=== PATIENT | male | born 1955 | race Caucasian/White ===

== ENCOUNTER 2016-11-24 19:20 | Emergency (ER) | payer BC ==
[2016-11-24 19:49] LABS: Troponin I 0.01 ng/mL (<0.04)
[2016-11-24 19:50] LABS: Hematocrit 42 % (42-52); Hemoglobin 14.5 g/dl (14.0-18.0); Mean Corpuscular HGB Conc 34 g/dl (31-36); Mean Corpuscular Hemoglobin 28 pg (27-31); Mean Corpuscular Volume 83 fL (80-94); Mean Platelet Volume 7 um3 (7.4-10.4); Red Blood Count 5.12 10^6/ul (4.0-5.4); Red Cell Distribution Width 14 % (10.5-15); White Blood Count 5.1 10^3/ul (3.5-10.8)
[2016-11-24 19:52] LABS: ALT 24 U/L (7-52); Albumin 4.3 g/dL (3.2-5.2); Alkaline Phosphatase 87 U/L (34-104); BUN/Creatinine Ratio 17.5 (8-20); Blood Urea Nitrogen 22 mg/dL (6-24); CO2 Carbon Dioxide 20 mmol/L (22-32); Chloride 104 mmol/L (101-111); Cholesterol 226 mg/dL; EGFR African American 75.1 (>60); EGFR Non-African American 58.4 (>60); Globulin 3.1 g/dL (2-4); Glucose 103 mg/dL (70-100); HDL Cholesterol 36.5 mg/dL; Sodium 134 mmol/L (133-145); Total Protein 7.4 g/dL (6.4-8.9); Triglycerides 496 mg/dL
--- NOTE | 2016-11-24 19:53 | RAD ---
INDICATION: Code santiago COMPARISON: None TECHNIQUE: Noncontrast axial source images were acquired from the skull base to the vertex. Examination is mildly limited due to motion artifact FINDINGS: Ventricles/sulci: The ventricles and cisterns are normal in size and configuration for age. Brain parenchyma: There is no definitive focal parenchymal finding, evidence of intracranial mass, or intracranial mass effect. Intracranial hemorrhage:None. Extra-axial spaces: There are no abnormal extra axial fluid collections or evidence of extra-axial mass. Calvarium: There is no calvarial fracture or other calvarial abnormality. Scalp: There is no evidence of scalp or extracalvarial soft tissue abnormality. Paranasal sinuses/mastoid: The paranasal sinuses and mastoid air cells are clear. Other: The left MCA is hyperdense consistent with thrombus. IMPRESSION: HYPERDENSE LEFT MCA CONSISTENT WITH THROMBUS/CLOT AND IMPENDING LEFT MCA DISTRIBUTION INFARCT. NO INTRACRANIAL HEMORRHAGE IS IDENTIFIED. Findings called to ED at 1940 hours
--- NOTE | 2016-11-24 20:07 | RAD ---
INDICATION: CVA COMPARISON: None TECHNIQUE: An AP portable view obtained at 1945 hours is submitted. FINDINGS: Bones/Soft Tissues: There are no acute bony findings. Cardiomediastinal: The cardiomediastinal silhouette is normal. Lungs: There are no infiltrates. Pleura: There are no pleural effusions. Other: None IMPRESSION: NO ACTIVE DISEASE.
[2016-11-24] MEDS ORDERED: ALTEPLASE IV ONE (20:08)
[2016-11-24] MEDS ORDERED: ALTEPLASE IVPB ONE (20:08)
[2016-11-24] MEDS ORDERED: LORazepam INJ* 2 MG/ML 1 ML VIAL ONE (20:21)
[2016-11-24] MEDS ORDERED: LORazepam INJ* 2 MG/ML 1 ML VIAL IV PUSH ONE ×3 (20:28→21:00)
--- NOTE | 2016-11-24 20:42 | CONSULT ---
Consult Consult: 11/24/16 neurology consult 61 year old RHM, no relevant med history (traumatic R toe amputation, knee surg) , no home meds/NKDA, presenting tonight with acute onset obtundation, aphasia, left gaze preference and right hemiparesis. Accompanied in ED by they were working in yard around 18-18:30, she sent him inside while she stayed outside. She thinks he was unaccompanied 30-40 min max; when she went in she found him in above state and activated EMS. She showed me a 18:42 text on his phone to which he replied in [employer] App. Found to be in afib. Allergies/Meds - none/per hpi PMH - as above FH - NC SH - no tobacco or etoh issues; lives with ROS - 10 point review limited by altered mental status/limited cooperation general Examination: no apparent distress, no edema, male of stated age; VS per EMR Neurologic Examination Mental Status: obtunded, moving all over bed L > R, aphasic Cranial Nerves: Funduscopy deferred, pupils reactive, L gaze preference with intact doll and corneal reflexes, face symmetric Motor: right hemiparesis, moving left side vigorously, moving RLE some spont and to noxious stim vs min withdrawal RUE Sensory: as above Reflexes: 2 throughout; L toes rapid withdrawal vs R toe amputated Coordination: deferred Gait: deferred Serologies: Cr 1.26, plt 132K, otherwise coags, chem, CBC, LFTs all ok are all normal or negative Priors: none Imaging: Head CT reviewed and has motion artifact but no obvious blood products; has dense L M1 thrombus Cxr neg Impression: 61 year old no pmh, p/w acute L MCA stroke in context of newly discovered afib. Plan d/w and ED staff; will treat with IV TPA, and transfer has been arranged to [facility] for possible add on endovascular intervention (d/w [facility] transfer center and has been accepted by dr Devon Hale of [facility] neurosurg service).
--- NOTE | 2016-11-24 20:44 | ED ---
Chalino Cameron Billy, scribed for Lev Vázquez MD on 11/24/16 at 1941 . Neurological HPI - HPI Summary HPI Summary: Patient is a 61 year-old male BIBA to [facility] for evaluation of right-sided weakness, facial droop, and aphasia. Patient is unable to provide history, so his is here in the ED to do so. She states that earlier this evening, patient had been in the backyard with his family acting normally. However, at 1830, patient was found at the bottom of a flight of approximately 8 steps. The patient's states that their daughter may have seen the patient seated on the steps shortly before. When the found the patient at the bottom of the steps, he was minimally responsive with clear right-sided weakness, facial droop , and aphasia. His symptoms were unimproved en route to the hospital. His states that the patient has no prior medical history and has not seen a physician in many years. He takes no medications, including any bloodthinners. - History of Current Complaint Chief Complaint: EDNeurologicalDeficit Stated Complaint: WEAKNESS, FACIAL DROOP, APHASIA Time Seen by Provider: 11/24/16 19:22 Last Known Well Date: 11/24/161829 Hx Obtained From: Family/Amphibious Operations Officer - Hx From Patient Unobtainable Due To: Other - Level 5 caveat Onset/Duration: Started minutes ago Timing: Constant Onset Severity: Severe Current Severity: Severe Neurological Deficit Location: Facial, RUE, RLE Character: Motor Weakness, Impaired Speech, Other: - Facial droop Aggravating: Unknown Alleviating: Unknown - Allergy/Home Medications Allergies/Adverse Reactions: Allergies Allergy/AdvReac Type Severity Reaction Status Date / Time No Known Allergies Allergy Verified 11/24/16 19:47 Home Medications: Home Medications NK [No Home Medications Reported] 11/24/16 [History Confirmed 11/24/16] PMH/Surg Hx/FS Hx/Imm Hx Endocrine/Hematology History: Denies: Hx Anticoagulant Therapy, Hx Diabetes Cardiovascular History: Denies: Hx Hypercholesterolemia, Hx Hypertension - Surgical History Surgery Procedure, Year, and Place: Right toe amputation Infectious Disease History: Denies: Traveled Outside the [place] in Last 30 Days - Family History Known Family History: Positive: Unknown - Not obtained from the patient; level 5 caveat. - Social History Occupation: Employed Full-time Lives: With Family Substance Use Type: Reports: Marijuana Smoking Status (MU): Never Smoked Tobacco Review of Systems Neurological: Other - Facial droop, aphasia Positive: Weakness All Other Systems Reviewed And Are Negative: No - Comments Additional Review of Systems Comments: Full ROS not obtained; level 5 caveat. Physical Exam - Summary Physical Exam Summary: Constitutional: Well-developed, Well-nourished, Alert. (-) Distressed Skin: Warm, Dry HENT: Eyes: Conjunctiva normal Neck: Musculoskeletal ROM normal neck. (-) JVD, (-) Stridor, (-) Tracheal deviation Cardio: Irregular rate and rhythm, Heart sounds normal; Intact distal pulses; The pedal pulses are 2+ and symmetric. Radial pulses are 2+ and symmetric. (-) Murmur Pulmonary/Chest wall: Effort normal. (-) Respiratory distress, (-) Wheezes, (-) Rales Abd: Soft. (-) Tenderness, (-) Distension, (-) Guarding, (-) Rebound Musculoskeletal: (-) Edema Lymph: (-) Cervical adenopathy Neuro: Alert. Right-sided weakness and facial droop. Right-sided hemineglect. Expressive and receptive aphasia. Does not track finger past midline on right side. Withdraws from painful stimuli in right leg. Minimal withdrawal from painful stimuli in right arm. Psych: Not assessed; patient is aphasic. Triage Information Reviewed: Yes Vital Signs On Initial Exam: Initial Vitals Pulse Resp BP Pulse Ox 86 16 142/79 100 11/24/16 19:23 11/24/16 19:23 11/24/16 19:23 11/24/16 19:23 Vital Signs Reviewed: Yes Completion Of Physical Exam Limited Due To: Level 5 Diagnostics - Vital Signs Vital Signs Pulse Resp BP Pulse Ox 11/24/16 19:23 86 16 142/79 100 - Laboratory Lab Results: Lab Results 11/24/16 11/24/16 11/24/16 Range/Units 19:24 19:24 19:24 WBC (3.5-10.8) 10^3/ul RBC (4.0-5.4) 10^6/ul Hgb (14.0-18.0) g/dl Hct (42-52) % MCV (80-94) fL MCH (27-31) pg MCHC (31-36) g/dl RDW (10.5-15) % Plt Count (150-450) 10^3/ul MPV (7.4-10.4) um3 Neut % (Auto) (38-83) % Lymph % (Auto) (25-47) % [place] % (Auto) (1-9) % Eos % (Auto) (0-6) % Baso % (Auto) (0-2) % Absolute Neuts (auto) (1.5-7.7) 10^3/ul Absolute Lymphs (auto) (1.0-4.8) 10^3/ul Absolute Monos (auto) (0-0.8) 10^3/ul Absolute Eos (auto) (0-0.6) 10^3/ul Absolute Basos (auto) (0-0.2) 10^3/ul Absolute Nucleated RBC 10^3/ul Nucleated RBC % INR (Anticoag Therapy) 0.88 L (0.89-1.11) APTT 26.9 (26.0-36.3) seconds Sodium 134 (133-145) mmol/L Potassium TNP Chloride 104 (101-111) mmol/L Carbon Dioxide 20 L (22-32) mmol/L Anion Gap TNP BUN 22 (6-24) mg/dL Creatinine 1.26 H (0.67-1.17) mg/dL Est GFR ( Amer) 75.1 (>60) Est GFR (Non-Af Amer) 58.4 (>60) BUN/Creatinine Ratio 17.5 (8-20) Glucose 103 H (70-100) mg/dL POC Glucose (mg/dL) (74-106) mg/dL Lactic Acid 1.3 (0.5-2.0) mmol/L Calcium 9.0 (8.6-10.3) mg/dL Total Bilirubin 0.60 (0.2-1.0) mg/dL AST TNP ALT 24 (7-52) U/L Alkaline Phosphatase 87 (34-104) U/L Troponin I 0.01 (<0.04) ng/mL Total Protein 7.4 (6.4-8.9) g/dL Albumin 4.3 (3.2-5.2) g/dL Globulin 3.1 (2-4) g/dL Albumin/Globulin Ratio 1.4 (1-3) Triglycerides 496 mg/dL Cholesterol 226 mg/dL LDL Cholesterol mg/dL HDL Cholesterol 36.5 mg/dL Blood Type Antibody Screen 11/24/16 11/24/16 11/24/16 Range/Units 19:36 19:40 19:40 WBC 5.1 (3.5-10.8) 10^3/ul RBC 5.12 (4.0-5.4) 10^6/ul Hgb 14.5 (14.0-18.0) g/dl Hct 42 (42-52) % MCV 83 (80-94) fL MCH 28 (27-31) pg MCHC 34 (31-36) g/dl RDW 14 (10.5-15) % Plt Count 132 L (150-450) 10^3/ul MPV 7 L (7.4-10.4) um3 Neut % (Auto) 62.0 (38-83) % Lymph % (Auto) 27.7 (25-47) % [place] % (Auto) 8.1 (1-9) % Eos % (Auto) 1.2 (0-6) % Baso % (Auto) 1.0 (0-2) % Absolute Neuts (auto) 3.2 (1.5-7.7) 10^3/ul Absolute Lymphs (auto) 1.4 (1.0-4.8) 10^3/ul Absolute Monos (auto) 0.4 (0-0.8) 10^3/ul Absolute Eos (auto) 0.1 (0-0.6) 10^3/ul Absolute Basos (auto) 0 (0-0.2) 10^3/ul Absolute Nucleated RBC 0 10^3/ul Nucleated RBC % 0.1 INR (Anticoag Therapy) (0.89-1.11) APTT (26.0-36.3) seconds Sodium (133-145) mmol/L Potassium Chloride (101-111) mmol/L Carbon Dioxide (22-32) mmol/L Anion Gap BUN (6-24) mg/dL Creatinine (0.67-1.17) mg/dL Est GFR ( Amer) (>60) Est GFR (Non-Af Amer) (>60) BUN/Creatinine Ratio (8-20) Glucose (70-100) mg/dL POC Glucose (mg/dL) 82 (74-106) mg/dL Lactic Acid (0.5-2.0) mmol/L Calcium (8.6-10.3) mg/dL Total Bilirubin (0.2-1.0) mg/dL AST ALT (7-52) U/L Alkaline Phosphatase (34-104) U/L Troponin I (<0.04) ng/mL Total Protein (6.4-8.9) g/dL Albumin (3.2-5.2) g/dL Globulin (2-4) g/dL Albumin/Globulin Ratio (1-3) Triglycerides mg/dL Cholesterol mg/dL LDL Cholesterol mg/dL HDL Cholesterol mg/dL Blood Type B Negative Antibody Screen Negative 11/24/16 Range/Units 19:40 WBC (3.5-10.8) 10^3/ul RBC (4.0-5.4) 10^6/ul Hgb (14.0-18.0) g/dl Hct (42-52) % MCV (80-94) fL MCH (27-31) pg MCHC (31-36) g/dl RDW (10.5-15) % Plt Count (150-450) 10^3/ul MPV (7.4-10.4) um3 Neut % (Auto) (38-83) % Lymph % (Auto) (25-47) % [place] % (Auto) (1-9) % Eos % (Auto) (0-6) % Baso % (Auto) (0-2) % Absolute Neuts (auto) (1.5-7.7) 10^3/ul Absolute Lymphs (auto) (1.0-4.8) 10^3/ul Absolute Monos (auto) (0-0.8) 10^3/ul Absolute Eos (auto) (0-0.6) 10^3/ul Absolute Basos (auto) (0-0.2) 10^3/ul Absolute Nucleated RBC 10^3/ul Nucleated RBC % INR (Anticoag Therapy) (0.89-1.11) APTT (26.0-36.3) seconds Sodium (133-145) mmol/L Potassium 4.4 Chloride (101-111) mmol/L Carbon Dioxide (22-32) mmol/L Anion Gap BUN (6-24) mg/dL Creatinine (0.67-1.17) mg/dL Est GFR ( Amer) (>60) Est GFR (Non-Af Amer) (>60) BUN/Creatinine Ratio (8-20) Glucose (70-100) mg/dL POC Glucose (mg/dL) (74-106) mg/dL Lactic Acid (0.5-2.0) mmol/L Calcium (8.6-10.3) mg/dL Total Bilirubin (0.2-1.0) mg/dL AST 20 ALT (7-52) U/L Alkaline Phosphatase (34-104) U/L Troponin I (<0.04) ng/mL Total Protein (6.4-8.9) g/dL Albumin (3.2-5.2) g/dL Globulin (2-4) g/dL Albumin/Globulin Ratio (1-3) Triglycerides mg/dL Cholesterol mg/dL LDL Cholesterol mg/dL HDL Cholesterol mg/dL Blood Type Antibody Screen Result Diagrams: 11/24/16 19:40 11/24/16 19:40 Lab Statement: Any lab studies that have been ordered have been reviewed, and results considered in the medical decision making process. - Radiology CXR Radiology Interpretation Completed By: Radiologist - NO ACTIVE DISEASE. - CT Brain CT Interpretation Completed By: Radiologist - HYPERDENSE LEFT MCA CONSISTENT WITH THROMBUS/CLOT AND IMPENDING LEFT MCA DISTRIBUTION INFARCT. NO INTRACRANIAL HEMORRHAGE IS IDENTIFIED. - EKG 1938 EKG Interpretation: atrial fibrillation 104 bpm; no STEMI NIH Scale - NIH Scale Level of Consciousness: Alert/Keenly Responsive Ask Patient the Month and His/Her Age: Neither Correct/Aphasic Ask Pt to Open/Close Eyes and Joint Cleaning Machine Operator/Release Non-Paretic Hand: Neither Correctly Best Gaze (Only Horizontal Eye Movement): Partial Gaze Palsy Visual Field Testing: Complete Hemianopia Facial Paresis-Pt to Smile & Close Eyes or Grimace Symmetry: Complete Paralysis Motor Function - Right Arm: No Effort Against [place] Motor Function - Left Arm: Drifts LT 10 seconds Motor Function - Right Leg: No Effort Against [place] Motor Function - Left Leg: Drifts LT 10 seconds Limb Ataxia-Must be out of Proportion to Weakness Present: Absent Sensory (Use Pinprick to Test Arms/Legs/Trunk/Face): Pinprick Less on Affected Best Language (Describe Picture, Name Items): Mute/Global Aphasia Dysarthria (Read Several Words): Unintelligible or Mute Extinction and Inattention: Profound Karel-Inattention Total Score: 26 Re-Evaluation - Re-Evaluation First Eval Re-Evaluation Time: 20:00 Change: Unchanged Comment: There is no change in status at re-evaluation. Scale is at bedside at this time. Second Eval Re-Evaluation Time: 20:08 Change: Unchanged Comment: Dr. Osman is evaluating the patient in the ED at this time. Third Eval Re-Evaluation Time: 20:25 Comment: Patient was agitated and tried to get out of bed. Medical restraints ordered. Fourth Eval Re-Evaluation Time: 20:39 Comment: Patient agitated. Course/Dx - Course Assessment/Plan: Patient is a 61 year-old male BIBA to [facility] for evaluation of possible CVA. 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 EKG shows atrial fibrillation, no STEMI. CXR shows no active disease. CT brain shows hyperdense left mca consistent with thrombus/clot and impending left mca distribution infarct; no intracranial hemorrhage is identified. Labs and imaging resultsdiscussed with . Risks and benefits of tPA were explained in great detail to the patient's . Dr. Burrows is aware that the patient has a high NIHSS. His bleeding screen is negative. Patient will be transferred to [facility], where he will be seen by Dr. Hale for neuroendovascular surgery, which is not offered at [facility] [place]. - Diagnoses Provider Diagnoses: Acute right MCA stroke During the Visit The Following Alert/Code Occurred: Yuriy Baeza - Called @ 1915 - Physician Notifications Discussed Care of Patient With: Dr. Moreno (radiology) @ 1939: CT brain findings discussed. Dr. Osman (neurology) @ 1939: NIHSS findings and patient presentation discussed. Will see patient in the ED and consider tPA. Dr. Osman (neurology) @ 2015: Continue with plan for tPA. Dr. Osman (neurology) @ 2019: Discussed with Dr. Hale at [facility], who will accept the patient for transfer. Instructed by Provider To: Transfer Reason For Transfer: Specialty or service not available at [facility] [place]. - Critical Care Time Critical Care Time: 75-104 min Discharge - Discharge Plan Condition: Critical Disposition: TRANS HIGHER LVL OF CARE FAC Referrals: No Primary Care Phys,NOPCP [Primary Care Provider] - The documentation as recorded by the Chalino luz Billy accurately reflects the service I personally performed and the decisions made by me, Lev Vázquez MD.
[2016-11-24 21:42] VITALS: BP 154/102
== END 2016-11-24 21:42 | disposition short-term general hospital (02) ==
LOC: ED 19:20
DX: I63.411 Cerebral infarction due to embolism of right middle cerebral artery (principal); R53.1 Weakness; R29.810 Facial weakness
CPT/HCPCS: 36415; 70450; 71010; 80053; 80061; 83605; 84484; 85025; 85610; 85730; 86850; 86900; 86901; 93005; 96365; 96375; 99285; J2060; J2997

== ENCOUNTER 2017-11-15 17:40 | Emergency (ER) | payer BC ==
--- NOTE | 2017-11-15 18:42 | RAD ---
Indication: New onset seizure. Stroke about a year ago. RIGHT-sided residual defects. RIGHT facial droop at baseline. Comparison: November 24, 2016 CT. Technique: Noncontrast CT vertex of skull through foramen magnum. Report: Massive LEFT middle cerebral artery distribution encephalomalacia involving the frontal, temporal, and parietal lobes with associated ex vacuo dilatation of the LEFT lateral ventricle. Overlying craniotomy site. Associated Wallerian degeneration of the LEFT cerebral peduncle. No additional santiago matter white matter obscuration evident. Negative for mass effect. Unremarkable residual cerebral sulci. Patent basal cisterns. Unremarkable visualized orbital contents. Negative for suspicious calvarial or skull base lesion. Clear visualized paranasal sinuses and mastoid air spaces. Negative for scalp hematoma. IMPRESSION: 1. No acute intracranial process or mass effect evident. 2. 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
[2017-11-15 18:55] LABS: ABS Basophils 0 10^3/ul (0-0.2); ABS Eosinophils 0.1 10^3/ul (0-0.6); ABS Lymphocytes 1.1 10^3/ul (1.0-4.8); ABS Monocytes 0.3 10^3/ul (0-0.8); ABS Neutrophils 3.7 10^3/ul (1.5-7.7); ABS Nucleated RBC 0 10^3/ul; Eosinophil % 1.5 % (0-6); Hematocrit 42 % (42-52); Hemoglobin 14.3 g/dl (14.0-18.0); Lymphocyte % 21.2 % (25-47); Mean Corpuscular HGB Conc 34 g/dl (31-36); Mean Corpuscular Hemoglobin 28 pg (27-31); Mean Corpuscular Volume 82 fL (80-94); Mean Platelet Volume 7.3 um3 (7.4-10.4); Nucleated Red Blood Cells % 0.4; Platelet Count 136 10^3/ul (150-450); Red Blood Count 5.09 10^6/ul (4.0-5.4); Red Cell Distribution Width 15 % (10.5-15); White Blood Count 5.1 10^3/ul (3.5-10.8)
[2017-11-15 19:03] LABS: INR 2.49 (0.77-1.02)
[2017-11-15 19:12] LABS: EGFR Non-African American 70.3 (>60)
[2017-11-15] MEDS ORDERED: levETIRAcetam TAB* 500 MG PO ONE (20:11)
--- NOTE | 2017-11-15 20:35 | ED ---
Nahum Cameron Natalie, scribed for Neri Iqbal MD on 11/15/17 at 1838 . Neurological HPI - HPI Summary HPI Summary: The pt is a 62 y/o M presenting to the ED c/o seizure about an hour ago. Per , the pt slumped over at dinner, and starting shaking for a few minutes. His right side is chronically weak, but his left side has FROM. Pt additionally c/o headache. He denies head trauma, sleep loss, and being sick recently. The pt had an ischemic stroke a year ago, but has never had a seizure before today. - History of Current Complaint Chief Complaint: EDSeizure Stated Complaint: SEIZURES Time Seen by Provider: 11/15/17 18:05 Hx Obtained From: Patient, Family/Card Services Specialist - Hx From Patient Unobtainable Due To: Other - pt had stroke and is unable to always clearly articulate himself Onset/Duration: Sudden Onset Timing: Constant Seizure Severity: Mild Pain Intensity: 0 Pain Scale Used: 0-10 Numeric Character: Other: - slumping over and shaking Episode Lasting: Seconds/Minutes - a few minutes Syncope Context: Witnessed, At Rest Associated Signs and Symptoms: Positive: Seizure - Allergy/Home Medications Allergies/Adverse Reactions: Allergies Allergy/AdvReac Type Severity Reaction Status Date / Time No Known Allergies Allergy Verified 11/15/17 17:56 Home Medications: Home Medications Warfarin TAB(*) [Coumadin TAB(*)] 3.75 mg PO SUWE 11/15/17 [History Confirmed ] Warfarin TAB(*) [Coumadin TAB(*)] 7.5 mg PO MOTUTHFRSA 11/15/17 [History Confirmed 11/15/17] PMH/Surg Hx/FS Hx/Imm Hx Previously Healthy: No Endocrine/Hematology History: Denies: Hx Anticoagulant Therapy, Hx Diabetes Cardiovascular History: Denies: Hx Hypercholesterolemia, Hx Hypertension - Surgical History Surgery Procedure, Year, and Place: Right toe amputation Infectious Disease History: No Infectious Disease History: Denies: Traveled Outside the [place] in Last 30 Days - Family History Known Family History: Positive: Unknown - Not obtained from the patient; level 5 caveat. - Social History Alcohol Use: None Alcohol Amount: FORMER PRIOR TO STROKE DAILY Substance Use Type: Reports: Marijuana Smoking Status (MU): Never Smoked Tobacco Review of Systems Musculoskeletal: Negative - associated head trauma Neurological: Other - seizure activity with slumping over and shaking Positive: Headache All Other Systems Reviewed And Are Negative: Yes Physical Exam Triage Information Reviewed: Yes Vital Signs On Initial Exam: Initial Vitals Temp Pulse Resp BP Pulse Ox 99 F 86 20 144/89 98 11/15/17 17:40 11/15/17 17:40 11/15/17 17:40 11/15/17 17:40 11/15/17 17:40 Vital Signs Reviewed: Yes Appearance: Positive: Well-Appearing, No Pain Distress Skin: Positive: Warm, Skin Color Reflects Adequate Perfusion, Dry Head/Face: Positive: Other - right facial droop, left face is normal Eyes: Positive: EOMI, CINTHIA ENT: Positive: Normal ENT inspection Respiratory/Lung Sounds: Positive: Clear to Auscultation, Breath Sounds Present Cardiovascular: Positive: RRR Abdomen Description: Positive: Nontender, Soft Bowel Sounds: Positive: Present Musculoskeletal: Positive: Other - right arm is flaccid, right leg has a drop foot brace, 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, left arm and leg are normal Neurological: Positive: Alert, Oriented to Person Place, Time, Expressive Aphasia, Facial Droop - right Psychiatric: Positive: Affect/Mood Appropriate Diagnostics - Vital Signs Vital Signs Temp Pulse Resp BP Pulse Ox 11/15/17 18:00 88 14 119/84 98 11/15/17 17:53 144/89 11/15/17 17:40 99 F 86 20 144/89 98 - Laboratory Lab Results: Lab Results 11/15/17 11/15/17 11/15/17 Range/Units 18:45 18:45 18:45 WBC 5.1 (3.5-10.8) 10^3/ul RBC 5.09 (4.0-5.4) 10^6/ul Hgb 14.3 (14.0-18.0) g/dl Hct 42 (42-52) % MCV 82 (80-94) fL MCH 28 (27-31) pg MCHC 34 (31-36) g/dl RDW 15 (10.5-15) % Plt Count 136 L (150-450) 10^3/ul MPV 7.3 L (7.4-10.4) um3 Neut % (Auto) 71.2 (38-83) % Lymph % (Auto) 21.2 L (25-47) % [place] % (Auto) 5.1 (0-7) % Eos % (Auto) 1.5 (0-6) % Baso % (Auto) 1.0 (0-2) % Absolute Neuts (auto) 3.7 (1.5-7.7) 10^3/ul Absolute Lymphs (auto) 1.1 (1.0-4.8) 10^3/ul Absolute Monos (auto) 0.3 (0-0.8) 10^3/ul Absolute Eos (auto) 0.1 (0-0.6) 10^3/ul Absolute Basos (auto) 0 (0-0.2) 10^3/ul Absolute Nucleated RBC 0 10^3/ul Nucleated RBC % 0.4 INR (Anticoag Therapy) 2.49 H (0.77-1.02) APTT 39.3 H (26.0-36.3) seconds Sodium 136 L (139-145) mmol/L Potassium 4.0 (3.5-5.0) mmol/L Chloride 105 (101-111) mmol/L Carbon Dioxide 23 (22-32) mmol/L Anion Gap 8 (2-11) mmol/L BUN 16 (6-24) mg/dL Creatinine 1.07 (0.67-1.17) mg/dL Est GFR ( Amer) 90.4 (>60) Est GFR (Non-Af Amer) 70.3 (>60) BUN/Creatinine Ratio 15.0 (8-20) Glucose 115 H (70-100) mg/dL Lactic Acid (0.5-2.0) mmol/L Calcium 9.2 (8.6-10.3) mg/dL Magnesium 2.0 (1.9-2.7) mg/dL Total Bilirubin 0.50 (0.2-1.0) mg/dL AST 13 (13-39) U/L ALT 12 (7-52) U/L Alkaline Phosphatase 66 (34-104) U/L Total Creatine Kinase 81 (10-223) U/L CK-MB (CK-2) 1.6 (0.6-6.3) ng/mL C-Reactive Protein < 1.00 (< 5.00) mg/L Total Protein 6.8 (6.4-8.9) g/dL Albumin 4.2 (3.2-5.2) g/dL Globulin 2.6 (2-4) g/dL Albumin/Globulin Ratio 1.6 (1-3) TSH 2.08 (0.34-5.60) mcIU/mL 11/15/17 Range/Units 18:45 WBC (3.5-10.8) 10^3/ul RBC (4.0-5.4) 10^6/ul Hgb (14.0-18.0) g/dl Hct (42-52) % MCV (80-94) fL MCH (27-31) pg MCHC (31-36) g/dl RDW (10.5-15) % Plt Count (150-450) 10^3/ul MPV (7.4-10.4) um3 Neut % (Auto) (38-83) % Lymph % (Auto) (25-47) % [place] % (Auto) (0-7) % Eos % (Auto) (0-6) % Baso % (Auto) (0-2) % Absolute Neuts (auto) (1.5-7.7) 10^3/ul Absolute Lymphs (auto) (1.0-4.8) 10^3/ul Absolute Monos (auto) (0-0.8) 10^3/ul Absolute Eos (auto) (0-0.6) 10^3/ul Absolute Basos (auto) (0-0.2) 10^3/ul Absolute Nucleated RBC 10^3/ul Nucleated RBC % INR (Anticoag Therapy) (0.77-1.02) APTT (26.0-36.3) seconds Sodium (139-145) mmol/L Potassium (3.5-5.0) mmol/L Chloride (101-111) mmol/L Carbon Dioxide (22-32) mmol/L Anion Gap (2-11) mmol/L BUN (6-24) mg/dL Creatinine (0.67-1.17) mg/dL Est GFR ( Amer) (>60) Est GFR (Non-Af Amer) (>60) BUN/Creatinine Ratio (8-20) Glucose (70-100) mg/dL Lactic Acid 1.3 (0.5-2.0) mmol/L Calcium (8.6-10.3) mg/dL Magnesium (1.9-2.7) mg/dL Total Bilirubin (0.2-1.0) mg/dL AST (13-39) U/L ALT (7-52) U/L Alkaline Phosphatase (34-104) U/L Total Creatine Kinase (10-223) U/L CK-MB (CK-2) (0.6-6.3) ng/mL C-Reactive Protein (< 5.00) mg/L Total Protein (6.4-8.9) g/dL Albumin (3.2-5.2) g/dL Globulin (2-4) g/dL Albumin/Globulin Ratio (1-3) TSH (0.34-5.60) mcIU/mL Result Diagrams: 11/15/17 18:45 11/15/17 18:45 Lab Statement: Any lab studies that have been ordered have been reviewed, and results considered in the medical decision making process. - CT Brain CT CT Interpretation: No Acute Changes - 1. No acute intracranial process or mass effect evident. 2. 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 ED physician has reviewed this report. CT Interpretation Completed By: Radiologist - EKG 18:38 Cardiac Rate: Other Rate EKG Rhythm: Atrial Fibrillation - 92 BPM EKG Comparison: No Significant Change - Prior EKG shows Afib Course/Dx - Course Course Of Treatment: Medications reviewed. BP noted and advised to follow up with PCP. DISCUSSED WITH DR EDWARD, NEUROLOGY, WHO RECOMMENDS STARTING KEPPRA 500MG PO BID AND F/U WITH NEUROLOGY. THIS WAS DISCUSSED WITH THE PATIENT AND HIS . F/U NEUROLOGY, RETURN IF WORSE. - Diagnoses Provider Diagnoses: Elevated BP without diagnosis of hypertension, First time seizure - Physician Notifications Discussed Care Of Patient With: Jaden Edward Time Discussed With Above Provider: 18:25 Instructed by Provider To: Other - Dr. Edward said to wait on results of head imaging. If everything is normal, the pt can be discharged with Keppra 500mg. If abnormality shows, the pt will be admitted. Discharge - Sign-Out/Discharge Documenting (check all that apply): Sign-Out Patient Signing out patient TO: Ty Childers - The pt is a sign-out to Dr. Childers at shift change awaiting labs. Receiving patient FROM: Neri Iqbal - Discharge Plan Condition: Stable Disposition: HOME Prescriptions: levETIRAcetam TAB* [Keppra TAB*] 500 mg PO BID #60 tab Patient Education Materials: New-Onset Seizure in Adults (ED) Referrals: [facility] [Provider Group] Elliott Adames MD [Primary Care Provider] - Jaden Edward MD [Medical Doctor] - Additional Instructions: FOLLOW UP WITH NEUROLOGY, DR EDWARD. CALL HIS OFFICE, 11/17/17, TO ARRANGE FOLLOW UP. RETURN TO THE EMERGENCY DEPARTMENT FOR ANY WORSENING OF YOUR CONDITION OR QUESTIONS OR CONCERNS. - Billing Disposition and Condition Condition: STABLE Disposition: HOME The documentation as recorded by the Nahum luz Natalie accurately reflects the service I personally performed and the decisions made by me, Neri Iqbal MD.
[2017-11-15 21:26] VITALS: BP 132/89
== END 2017-11-15 21:26 | disposition home or self-care (01) ==
LOC: ED 17:40
DX: R56.9 Unspecified convulsions (principal); R03.0 Elevated blood-pressure reading, without diagnosis of hypertension
CPT/HCPCS: 36415; 70450; 80053; 82550; 82553; 83605; 83735; 84443; 85025; 85610; 85730; 86140; 93005; 99283; A9270-GY

== ENCOUNTER 2020-09-22 11:13 | Observation (INO) ==
[2020-09-22 11:45] LABS: ABS Lymphocytes 1.2 10^3/ul (1.0-4.8); ABS Monocytes 0.3 10^3/ul (0-0.8); ABS Neutrophils 2.4 10^3/ul (1.5-7.7); Eosinophil % 0.8 %; Hematocrit 46 % (42-52); Hemoglobin 15.6 g/dL (14.0-18.0); Lymphocyte % 30.7 %; Mean Corpuscular HGB Conc 34 g/dL (31-36); Mean Corpuscular Hemoglobin 29 pg (27-31); Mean Corpuscular Volume 84 fL (80-94); Mean Platelet Volume 7.6 fL (7.4-10.4); Nucleated Red Blood Cells % 0.1; Platelet Count 138 10^3/uL (150-450); Red Blood Count 5.46 10^6 /uL (4.18-5.48); Red Cell Distribution Width 14 % (10-15); White Blood Count 3.9 10^3/uL (3.5-10.8)
[2020-09-22 11:54] LABS: INR 2.71 (0.82-1.09)
[2020-09-22 12:08] LABS: Albumin 4.3 g/dL (3.2-5.2); Albumin/Globulin Ratio 1.7 (1-3); BUN/Creatinine Ratio 17.2 (8-20); Calcium 8.9 mg/dL (8.6-10.3); EGFR African American 72.4 (>60); EGFR Non-African American 59.8 (>60); Globulin 2.6 g/dL (2-4); Potassium 4.5 mmol/L (3.5-5.0); Total Bilirubin 0.6 mg/dL (0.2-1.0); Total Protein 6.9 g/dL (6.4-8.9)
[2020-09-22] MEDS: Aspirin EC 81 mg TAB.EC (enteric coated) PO SCH (20:51)
[2020-09-23 06:01] LABS: INR 2.02 (0.82-1.09)
[2020-09-23] MEDS: Aspirin EC 81 mg TAB.EC (enteric coated) PO SCH (09:25)
[2020-09-23 11:28] VITALS: BP 138/96
[2020-09-23] MEDS ORDERED: Warfarin DAILY REMINDER **NOTE FOLLOW UP SCH (17:00)
== END 2020-09-23 13:44 | disposition home or self-care (01) ==
LOC: ED 11:13 → MEDTELE 11:13
PROVIDERS: ADMIT Internal Medicine; ATTEND Internal Medicine